=== PATIENT | female | born 1985 | race Asian ===

== ENCOUNTER 2018-10-26 21:55 | Inpatient (IN) | payer MEDICAID ==
[~2018-10-26] VITALS: Ht 166.4 cm; Wt 68.5 kg
[2018-10-26 22:21] VITALS: Ht 166.4 cm; Wt 68.5 kg
[2018-10-26 22:22] VITALS: BP 118/81; PULSE 93; RESP 18
[2018-10-26] MEDS ORDERED: LACTATED RINGER'S 1,000 ML IV SCH (22:23)
[2018-10-26] MEDS ORDERED: CARBOPROST 250 MCG INJ IM PRN (22:30)
[2018-10-26] MEDS ORDERED: OXYTOCIN 30 UNITS/LR 500 ML IV SCH ×2 (22:30)
[2018-10-26] MEDS ORDERED: OXYTOCIN 30 UNITS/LR 500 ML IV PRN (22:30)
[2018-10-26] MEDS ORDERED: MISOPROSTOL 200 MCG TAB PR PRN (22:30)
[2018-10-26] MEDS ORDERED: METHYLERGONOVINE 0.2 MG INJ IM PRN (22:30)
[2018-10-26] MEDS ORDERED: BUTORPHANOL 2 MG INJ IV PRN ×2 (22:30)
[2018-10-26] MEDS ORDERED: LIDOCAINE 1% (MPF) 30 ML INJ INJ PRN (22:30)
[2018-10-26] MEDS ORDERED: IBUPROFEN 600 MG TAB PO PRN (22:30)
[2018-10-27] MEDS ORDERED: OXYTOCIN 30 UNITS/LR 500 ML IV SCH (05:00)
--- NOTE | 2018-10-27 09:47 | HP ---
Date/Time of Note Date/Time of Note DATE: 10/27/18 TIME: 09:44 OB - History Hx of Present Free Text/Dictation Late entry note. Patient seen on 10/26/2018 32 years old 1 with single intrauterine at 39 weeks and 5 days with a XOCHITL of 10/28/2018 complaining of uterine contractions. She states good movement. She denies nausea, vomiting, shortness of breath, chest pain, headache, visual changes, vaginal bleeding or LOF. Chief Complaint: Uterine contractions Estimated Due Date: October 28, 2018 : 1 Care: Good Care Ultrasounds: Normal mid trimester US Obstetrical Complications: None Medical Complications: None Past Family/Social History * Past Medical, Surgical, Family and Obstetric Histories reviewed from chart. Blood Type: A+ Rubella: immune RPR/VDRL: Negative GBS Status: Negative HBsAG: Negative OB Admission Exam Vital Signs Vital Signs Vital Signs Date Temp Pulse Resp B/P (MAP) Pulse Ox O2 O2 Flow FiO2 Time Delivery Rate 10/26/18 98.5 93 18 118/81 Room Air 22:22 (93) Physical Exam HEENT: WNL Heart: Rhythm Normal Lungs: Clear Abdomen: WNL Extremities: Normal Cervical Dilatation: 3cm Effacement: 75% Station: -3 Membranes: Intact Heart Rate: 130's Accelerations: Accelerations Present Decelerations: No Decelerations Contractions on Admission: < 5 Minutes Apart Intensity: Moderate Last 72 hours Lab Results CBC & BMP 10/27/18 00:01 OB Assessment/Plan Other plan: 32 years old 1 with single intrauterine at 39 weeks and 5 days in labor - FHR: No sign of metabolic acidosis- Category I - Continuous EFM, toco - CBC, blood type and screen - Analgesia options with R/B/A discussed in detail with patient - Epidural per patient request - Please see the orders - A+/Rubella: Immune - GBS: Negative Admission, procedures, expectations, risks and possible complications have been discussed in detail with the patient. Risk of vaginal delivery including but not limited to bleeding, infection, cervical laceration, placental retention, injury to fetus, blood transfusion, blood transfusion related infection, risk of anesthesia, adhesion, cervical laceration, episiotomy/laceration, possible delivery with risk of bleeding, infection, injury to other organs (bowel, bladder, ureter, vessels, nerves), injury to fetus, blood transfusion, blood transfusion related infection, risk of anesthesia, scar and hernia formation, needs for future , removal of uterus or any other indicated surgery discussed with the patient. She expressed understanding and repeats the risks. All of her questions were answered. She signed the informed consent. PHYSICIAN'S VERIFICATION OF INFORMED CONSENT The patient was counseled regarding the procedure, its indications, risks, potential complications and alternatives and any questions were answered. Consent was obtained. PLANNED PROCEDURE/TREATMENT: Vaginal delivery, episiotomy, repair of laceration possible delivery ARIADNE KELLER October 27, 2018 09:47
--- NOTE | 2018-10-27 09:58 | LDN ---
Date/Time of Note Date/Time of Note DATE: 10/27/18 TIME: 09:55 Delivery Summary 33 years old 1 with single intrauterine at 39 weeks and 6 days delivered a viable female over right mediolateral episiotomy. There was a tight nuchal cord which clamp and caught. Rest of body delivered. Baby given to the nurse. Placenta delivered spontaneously and intact with the two-vessel cord(single umbilical artery). Episiotomy repaired with 2-0 Vicryl. Patient tolerated procedure well Time of delivery 08:27 Weight 6 pounds 8 ounces 8 at 1 minutes and 8 at 5 minutes EBL 150 mL Weeks of Gestation 39 weeks and 6 days Placenta Delivered: Spontaneously Meconium: none Episiotomy: Yes (Right mediolateral) Anesthesia type: Local Estimated blood loss: 150 Sponge & Needle done & correct: Yes All needle counts correct: Yes Delivery Information Sex Sex: female Apgars 1 Minute: 8 5 Minute: 8 10 Minute: 9 Umbilical Cord Cord presentations: nuchal cord (Tight, clamped and cut) Nuchal cord present X: 150 Cord Blood was obtained: Yes Mother & Baby Disposition Disposition Mom & Baby to Maternity; Good: Yes ARIADNE KELLER October 27, 2018 09:58
[2018-10-27] MEDS ORDERED: LACTATED RINGER'S 1,000 ML IV* SCH (10:13)
[2018-10-27] MEDS ORDERED: DEXTROSE 5%-LR 1,000 ML IV SCH (10:13)
[2018-10-27 10:20] VITALS: BP 111/71; PULSE 73; RESP 18
[2018-10-27] MEDS ORDERED: MISOPROSTOL 200 MCG TAB PR PRN (10:30)
[2018-10-27] MEDS ORDERED: MAGNESIUM HYDROXIDE 30ML CUP PO PRN (10:30)
[2018-10-27] MEDS ORDERED: ZOLPIDEM 5 MG TAB PO PRN (10:30)
[2018-10-27] MEDS ORDERED: BENZOCAINE 20% 56 ML SPRAY TOP PRN (10:30)
[2018-10-27] MEDS ORDERED: ACETAMINOPHEN 325 MG TAB PO PRN (10:30)
[2018-10-27] MEDS ORDERED: ONDANSETRON 4 MG INJ IV PRN (10:30)
[2018-10-27] MEDS ORDERED: OXYTOCIN 30 UNITS/LR 500 ML IV PRN (10:30)
[2018-10-27] MEDS ORDERED: DIBUCAINE 1% 30 GM OINT TOP PRN (10:30)
[2018-10-27] MEDS ORDERED: CARBOPROST 250 MCG INJ IM PRN (10:30)
[2018-10-27] MEDS ORDERED: SENNA/DOCUSATE NA (8.6MG/50MG) TAB PO PRN (10:30)
[2018-10-27] MEDS ORDERED: DIPHENHYDRAMINE 50 MG INJ IV PRN (10:30)
[2018-10-27] MEDS ORDERED: WITCH HAZEL/GLYCERIN PAD PR PRN (10:30)
[2018-10-27] MEDS ORDERED: OXYCODONE/ASPIRIN (4.88/325) TAB PO PRN (10:30)
[2018-10-27] MEDS ORDERED: LANOLIN HPA 1 PKT TOP PRN (10:30)
[2018-10-27] MEDS ORDERED: METHYLERGONOVINE 0.2 MG INJ IM PRN (10:30)
[2018-10-27] MEDS: IBUPROFEN 600 MG TAB PO SCH ×3 (12:00→23:56)
[2018-10-27 15:15] VITALS: BP 119/70; RESP 18
[2018-10-27 20:00] VITALS: BP 112/75; PULSE 84; RESP 16
[2018-10-28 04:00] VITALS: BP 100/63; PULSE 66; RESP 18
[2018-10-28] MEDS: IBUPROFEN 600 MG TAB PO SCH ×3 (05:16→18:01)
[2018-10-28 08:00] VITALS: BP 101/65; PULSE 64; RESP 16
--- NOTE | 2018-10-28 12:31 | PN ---
Date/Time of Note Date/Time of Note DATE: 10/28/18 TIME: 12:29 OB Subjective Subjective Subjective Patient reports decreased vaginal bleeding. Urinated. Denies any shortness of breath or chest pain. Ambulating. Breast-feeding. OB Objective Objective Objective General appearance: Alert and oriented x4 does not appear to be in any acute distress Abdomen: Soft, fundus palpable and nontender above the umbilicus Extremities: No calf tenderness, no click no edema no cord palpable Breast: No evidence of masses or fissure Laboratory Tests Test 10/28/18 06:26 10/28/18 08:04 Lab Scanned Report REFERENCE LAB White Blood Count 12.5 #H Red Blood Count 4.12 L Hemoglobin 13.2 Hematocrit 39.2 Mean Corpuscular Volume 95.1 Mean Corpuscular Hemoglobin 32.0 Mean Corpuscular Hemoglobin Concent 33.7 Red Cell Distribution Width 12.1 Platelet Count 195 Mean Platelet Volume 9.2 Immature Granulocytes % 0.500 H Neutrophils % 70.6 Lymphocytes % 20.8 Monocytes % 6.5 Eosinophils % 1.4 Basophils % 0.2 Nucleated Red Blood Cells % 0.0 Immature Granulocytes # 0.060 H Neutrophils # 8.8 H Lymphocytes # 2.6 Monocytes # 0.8 Eosinophils # 0.2 Basophils # 0.0 Nucleated Red Blood Cells # 0.0 VS - Last 72 Hours, by Label Date Temp Pulse Resp B/P (MAP) Pulse Ox O2 O2 Flow FiO2 Time Delivery Rate 10/28/18 97.8 64 16 101/65 Room Air 08:00 (77) 10/28/18 97.8 66 18 100/63 Room Air 04:00 (75) 10/27/18 98.2 84 16 112/75 Room Air 20:00 (87) 10/27/18 97.9 18 119/70 Room Air 15:15 (86) 10/27/18 97.8 73 18 111/71 Room Air 10:20 (84) 10/26/18 98.5 93 18 118/81 Room Air 22:22 (93) OB Assessment/Plan Other Assessment: day #1 Mild leukocytosis, likely reactive, asymptomatic, afebrile Routine care Anticipate DC home tomorrow CHHAYA SOL MD October 28, 2018 12:31
[2018-10-28 16:00] VITALS: BP 106/68; PULSE 76; RESP 17
[2018-10-28 20:00] VITALS: BP 114/66; PULSE 67; RESP 18
[2018-10-29] MEDS: IBUPROFEN 600 MG TAB PO SCH ×3 (00:04→13:35)
[2018-10-29 03:52] VITALS: BP 105/57; PULSE 72; RESP 17
[2018-10-29] MEDS ORDERED: MEASLES,MUMPS,RUBELLA VACCINE INJ SC* ONE (09:00)
[2018-10-29] MEDS ORDERED: DIPHTH/TET/ACEL PERTUSS (ADULT) 0.5 ML VIAL IM* ONE (09:00)
[2018-10-29 09:45] VITALS: BP 106/68; PULSE 63; RESP 14
--- NOTE | 2018-10-29 18:51 | PD.PPDC ---
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
--- NOTE | 2018-10-29 18:53 | DS ---
Date/Time of Note Date/Time of Note DATE: 10/29/18 TIME: 18:52 Obstetrical Discharge Record Final Diagnosis Final Diagnosis: Term delivered Vaginal Delivery Obstetrical Delivery: Spontaneous, Episiotomy, Repaired Complications Augmentation: No Induction: No Rupture of Membranes: No Condition on Discharge Physical Assessment Last Vitals: vss afebrile Voiding: Yes Bowel Movement: Yes Breast: Soft, non-tender Fundus: Firm Abdomen and Incision: N/A Episiotomy: healing ok Calf Tenderness: No Patient Condition: Stable KENYATTA MCKEON MD October 29, 2018 18:53
--- NOTE | 2018-10-30 17:53 | DELSUM ---
Delivery Summary A-C Datetime Report Generated by CPN: 10/30/2018 17:53 DELIVERY PERSONNEL Sampler First: Me Claudioena MATERNAL INFORMATION Delivery Anesthesia: Local Medications in Delivery: LR W/ 30 UNITS PITOCIN Delivery QBL (ml): 173 Placenta Cultured: No Maternal Complications: None LABOR SUMMARY EDC: 10/28/2018 00:00 No. Babies in Womb: 1 Attempted: No Labor Anesthesia: None LABOR INFORMATION Reason for Induction: Not Applicable Onset of Labor: 10/26/2018 02:30 Complete Dilatation: 10/27/2018 07:55 Oxytocin: N/A Group B Beta Strep: Negative Antibiotics # of Doses: 0 Steroids Given: None Reason Steroids Not Administered: Not Applicable MEMBRANES Membranes Rupture Method: Artificial Rupture of Membranes: 10/27/2018 08:01 Length of Rupture (hr): 0.43 Amniotic Fluid Color: Clear Amniotic Fluid Amount: Moderate Amniotic Fluid Odor: None STAGES OF LABOR Stage 1 hr: 29 Stage 1 min: 25 Stage 2 hr: 0 Stage 2 min: 32 Stage 3 hr: 0 Stage 3 min: 4 Total Time in Labor hr: 30 Total Time in Labor min: 1 VAGINAL DELIVERY Episiotomy: Right Mediolateral Laceration Extension: N/A Laceration Type: None Laceration Repair: Yes Initial Vag Sponge Count: 10 Final Vag Sponge Count: 20 Initial Vag Sharps Count: 1 Final Vag Sharps Count: 3 Sponge Count Correct: Yes; Vaginal Sweep Performed Sharps Count Correct: Yes BABY A INFORMATION Infant Delivery Date/Time: 10/27/2018 08:27 Method of Delivery: Vaginal Born in Route : No : N/A Forceps: N/A Vacuum Extraction: N/A Shoulder Dystocia : N/A SHOULDER DYSTOCIA BABY A Delivery Date/Time: 10/27/2018 08:27 PRESENTATION/POSITION BABY A Presentation: Cephalic Cephalic Presentation: Vertex Breech Presentation: N/A PLACENTA INFORMATION BABY A Placenta Delivery Time : 10/27/2018 08:31 Placenta Method of Delivery: Spontaneous Placenta Status: Delivered SCORES BABY A Heart Rate 1 min: >100 bpm Resp Effort 1 min: Good Cry Reflex Irritability 1 min: Cough/Sneeze/Pulls Away Muscle Tone 1 min: Active Motion Color 1 min: Blue/Pale Resuscitation Effort 1 min: Tactile Stimulation SCORE 1 MIN: 8 Heart Rate 5 min: >100 bpm Resp Effort 5 min: Good Cry Reflex Irritability 5 min: Cough/Sneeze/Pulls Away Muscle Tone 5 min: Active Motion Color 5 min: Blue/Pale Resuscitation Effort 5 min: Tactile Stimulation SCORE 5 MIN: 8 Heart Rate 10 min: >100 bpm Resp Effort 10 min: Good Cry Reflex Irritability 10 min: Cough/Sneeze/Pulls Away Muscle Tone 10 min: Active Motion Color 10 min: Body [place], Extremit Blue Resuscitation Effort 10 min: Tactile Stimulation SCORE 10 MIN: 9 INFORMATION BABY A Gestational Age at Delivery: 39.6 Gestational Status: Full Term- 39- 40.6 Weeks Outcome : Liveborn Condition : Stable Infant Sex: Female IDENTIFICATION/MEDS BABY A ID Band Number: [id number] ID Band Location: Right Leg; Left Arm Sensor Applied: Yes Sensor Number: [id number] Sensor Location : Cord Clamp Vitamin K Given : Not Given Erythromycin Given: Not Given WEIGHT/LENGTH BABY A Infant Birthweight (gm): 2955 Infant Weight (lb): 6 Infant Weight (oz): 8 Length (in): 19.00 Infant Length (cm): 48.26 CORD INFORMATION BABY A No. Cord Vessels: 2 Nuchal Cord : Around Neck x1, Tight Cord Blood Taken: Yes Suction: Mouth; Nose ASSESSMENT BABY A Infant Complications: Other Complications- Other: 1 UMBILICAL ARTERY Physical Findings at Delivery: Within Normal Limits Infant Respirations: Appears Normal Director Of Human Resources/ALS Called : Yes Care By: RT/RN Transferred To: Remains with Mother
--- NOTE | 2018-10-31 23:20 | NSTRPT ---
NST Information Datetime Report Generated by CPN: 10/31/2018 23:19 Datetime: 10/26/2018 22:08 NST Information EGA: 39.5 Datetime: 10/26/2018 13:28 NST Information EGA: 39.5 NST Duration (Min): 21 Electronically Signed By E-Signature: with User ID: [id number] Datetime: 10/22/2018 13:15 NST Information EGA: 39.1 NST Duration (Min): 31 Datetime: 10/20/2018 13:25 NST Information EGA: 38.6 NST Duration (Min): 25 Datetime: 10/15/2018 13:19 NST Information EGA: 38.1 NST Duration (Min): 49 Datetime: 10/12/2018 13:06 NST Information EGA: 37.5 NST Duration (Min): 20 Datetime: 10/08/2018 08:55 NST Information EGA: 37.1 NST Duration (Min): 32 Datetime: 10/05/2018 13:18 NST Information EGA: 36.5 Datetime: 10/05/2018 13:11 NST Duration (Min): 21
--- NOTE | 2018-11-02 15:35 | NSTRPT ---
NST Information Datetime Report Generated by CPN: 11/02/2018 15:34 Datetime: 10/20/2018 13:25 Electronically Signed By E-Signature: with User ID: [id number]
== END 2018-10-29 17:50 | disposition home or self-care (01) | DRG 807 ==
LOC: OBT 21:55 → L-D 21:56 → OBT 22:22 → L-D 22:22 → PP1 10-27 10:09
PROVIDERS: ADMIT Obstetrics & Gynecology; ATTEND Obstetrics & Gynecology
PROC: 10E0XZZ Delivery of Products of Conception, External Approach (ICD-10-PCS; principal; 2018-10-27)
PROC: 0W8NXZZ Division of Female Perineum, External Approach (ICD-10-PCS; 2018-10-27)
DX: O69.1XX0 Labor and delivery complicated by cord around neck, with compression, not applicable or unspecified (principal); Z37.0 Single live birth; Z3A.39 39 weeks gestation of pregnancy
CPT/HCPCS: 62322; 76815; 76818; 85025; 85610; 85730; 86592; 86850; 86900; 86901; G0463; J2210; J2590; J7120; J7121